=== PATIENT | female | born 1990 | race Two or more races ===

== ENCOUNTER 2018-10-14 19:21 | Emergency (ER) | payer OTHER ==
[~2018-10-14] VITALS: Ht 177.8 cm; Wt 89.4 kg
--- NOTE | 2018-10-14 19:50 | NUR ---
PT BIBSELF COMPLAINING OF CHEST PAIN/ SOB. EPISODE OCCURED LAST NIGHT WHILE SLEEPING. PT AOX4. NAD NOTED. RESP EVEN AND UNLABORED. PT ON MONITOR IN BED 9 WITH FAMILY AT BEDSIDE. WILL CONTINUE TO MONITOR.
[2018-10-14] MEDS ORDERED: LIDOCAINE VISCOUS 2% UD 15 ML UDC MM ONE (20:30)
[2018-10-14] MEDS ORDERED: MAG HYDROX/AL HYDROX/SIMETH 30 ML UDC PO ONE (20:30)
[2018-10-14] MEDS ORDERED: MAG HYDROX/AL HYDROX/SIMETH 30 ML UDC ONE (20:35)
[2018-10-14] MEDS ORDERED: LIDOCAINE VISCOUS 2% UD 15 ML UDC ONE (20:35)
[2018-10-14 20:45] LABS: BASOPHILS % (AUTO) 0.4 % (0.0-2.0); EOSINOPHILS % (AUTO) 4.4 % (0.0-6.0); HEMATOCRIT 32 % (33-45); HEMOGLOBIN 9.8 g/dL (11.5-14.8); LYMPHOCYTES # (AUTO) 2.4 /CMM (0.8-4.8); MEAN CORPUSCULAR HGB CONC 31 g/dl (31.0-36.0); MEAN CORPUSCULAR VOLUME 71 fL (82-100); MONOCYTES # (AUTO) 0.5 /CMM (0.1-1.30); MONOCYTES % (AUTO) 6.4 % (2.0-12.0); NEUTROPHILS # (AUTO) 4.7 /CMM (1.8-8.9); NEUTROPHILS % (AUTO) 58.8 % (43.0-81.0); PLATELET COUNT (AUTO) 186 /CMM (150-450); RED BLOOD CELL COUNT(AUTO) 4.47 MIL/uL (4.0-5.2); WHITE BLOOD COUNT (AUTO) 7.9 K/uL (4.3-11.0)
[2018-10-14 20:54] LABS: CALCIUM, SERUM 8.9 mg/dL (8.5-10.1); CARBON DIOXIDE 25 mmol/L (21-32); CHLORIDE 104 mmol/L (98-107); CREATININE 0.8 mg/dL (0.6-1.3); GLUCOSE 97 mg/dL (74-106); POTASSIUM 3.7 mmol/L (3.5-5.1); SODIUM SERUM 140 mmol/L (136-145); UREA NITROGEN, BLOOD 13 mg/dL (7-18)
[2018-10-14 21:06] LABS: B-TYPE NATRIURETIC PEPTIDE 18 PG/ML (0-125)
[2018-10-14 21:38] LABS: D-DIMER 0.2 mg/L(FEU (0.17-0.50)
[2018-10-14 21:41] LABS: APPEARANCE,URINE Clear (CLEAR); BILIRUBIN,URINE Negative (NEGATIVE); BLOOD, URINE Trace-intact Ery/uL (NEGATIVE); COLOR,URINE Yellow (YELLOW); KETONES,URINE 15 (NEGATIVE); LEUKOCYTE ESTERASE ,URINE Negative (NEGATIVE); NITRITE, URINE Negative (NEGATIVE); PROTEIN,URINE Trace mg/dl (NEGATIVE); UGLUCOSE Negative (NEGATIVE); UROBILINOGEN,URINE 0.2 EU/dL (0.2)
[2018-10-14 21:42] VITALS: BP 127/87
[2018-10-14 21:56] LABS: BACTERIA,URINE Moderate /HPF (None Seen); MUCUS,URINE Many /LPF (None Seen); SQUAMOUS EPITHELIAL CELL,UR Few /HPF (None Seen); WBC,URINE 0-2 /HPF (0-3)
--- NOTE | 2018-10-14 22:10 | NUR ---
Patient is resting comfortably in bed with FAMILY AT BEDSIDE. VSS.
--- NOTE | 2018-10-14 22:30 | NUR ---
Patient discharged to home in stable condition. Written and verbal after care instructions given. Patient verbalizes understanding of instruction.
== END 2018-10-14 23:05 | disposition home or self-care (01) ==
LOC: ER 19:24
DX: R07.89 Other chest pain (principal)
CPT/HCPCS: 36415; 71045; 80048; 81001; 83880; 84484; 84703; 85025; 85378; 85730; 87086; 93005; 99284; A4606; 81000-TC